=== PATIENT | female | born 1935 | race Caucasian/White ===

== ENCOUNTER 2016-12-26 06:37 | Inpatient (IN) | payer MEDICARE, BC ==
[~2016-12-26] VITALS: Ht 172.7 cm; Wt 84.0 kg
--- NOTE | ~2016-12-26 | ER ---
PATIENT'S NAME: [facility] AGE: 80 Y [address] ROOM: [place] [address] LOCATION: GPCU ADMIT DATE: 12/26/2016 ER/Outpatient Report DISCHARGE DATE: FAMILY PHYSICIAN: PHYSICIAN, NO ATTENDING PHYSICIAN: EFREN SKAGGS V TIME OF ARRIVAL: 0637 hours. TIME SEEN: 0637 hours. IDENTIFICATION: A 80-year-old female. CHIEF COMPLAINT: Difficulty breathing. HISTORY OF PRESENT ILLNESS: The patient is a 80-year-old female, who is visiting family in [place]. She is from [place]. She has been short of breath and a cough productive of yellow sputum that is increasing in severity over the last couple of days. She had a temp at home this morning of 101.9 and short of breath. She was seen in the clinic yesterday by Dr. Valadez and prescribed a Z-Cornell, which she has taken 2 tablets. She does have a history of COPD, but not O2 or steroid- dependent. ALLERGIES: ALBUTEROL THAT CAUSES HER HEART TO RACE. MEDICATIONS: She takes: 1. Calcium plus vitamin D. 2. Eliquis 2.5 mg b.i.d. 3. Montelukast 10 mg at bedtime. 4. Multivitamin. 5. Incruse prescribed yesterday. 6. Z-Cornell prescribed yesterday. 7. Hydrochlorothiazide 25 mg daily. 8. Docusate. 9. Senna. 10. RezVera. MEDICAL PROBLEMS: 1. History of atrial fibrillation, on chronic anticoagulation. PATIENT'S NAME: [facility]AL [facility] AGE: 80 Y [address] ROOM: [address] [address] LOCATION: GPCU ADMIT DATE: 12/26/2016 ER/Outpatient Report DISCHARGE DATE: FAMILY PHYSICIAN: PHYSICIAN, NO ATTENDING PHYSICIAN: EFREN SKAGGS V 2. Congestive heart failure. 3. COPD. PRIOR SURGERIES: Pacemaker, cardiac ablation. SOCIAL HISTORY: The patient is . She is a retired nurse. She lives in [place]. She has family in [place]. Tobacco use, denies. Alcohol use, denies. Drug use, denies. REVIEW OF SYSTEMS: All systems reviewed and negative other than what is noted in the HPI. The only exception that she has chest pain with cough. She denies any other pain. PHYSICAL EXAMINATION: VITAL SIGNS: Height 5 feet 8 inches, weight 84 kg, blood pressure 141/92, pulse 88, respirations 18, temperature 101.2 tympanic, sats 84% on room air. GENERAL: This is a 80-year-old female who does appear short of breath. Could not answer in full sentences. HEENT: Head: Normocephalic, atraumatic. Ears: TMs translucent both ears. Eyes: Pupils equal and reactive to light and accommodation. Extraocular movements intact. Nose: Mucosa pink. No lesions or drainage. Mouth: No lesions. Pharynx benign. NECK: Supple. No lymphadenopathy. LUNGS: Crackles in the left lower lobe. HEART: Regular rate and rhythm. No murmur, rub, or gallop. ABDOMEN: Bowel sounds present. Soft and nondistended. No hepatosplenomegaly. No palpable masses. Nontender. SKIN: [place], warm, and dry. No lesions or rashes noted. NEURO: No focal deficit. She is alert and oriented x4. Cranial nerves 2 through 12 grossly intact. Motor strength 5/5 throughout. Sensation is intact to light touch. Trace of bilateral lower extremity edema. No calf tenderness. EMERGENCY DEPARTMENT COURSE: The patient was placed on O2 at 2 L per nasal cannula. Her sats improved to 90% to 92% on the 2 L. She was given Xopenex with her permission. Sputum culture was obtained. Blood cultures x2 were obtained. D-dimer 0.50. Influenza A is positive. Influenza B is negative. Hemoglobin 13.6, hematocrit 40.5, platelets 185, white count 7.1 with a normal differential. INR 1.2. Sodium 136, potassium 3.4, chloride 101, CO2 of 25, BUN 15, creatinine 0.8, blood sugar 145. Liver enzymes normal. Magnesium 1.4. CPK 169, CK-MB 0.9. Troponin I less than 0.040. ProBNP elevated at 2012, no previous pro-BNP for comparison. Lactate 2.1. UA: Specific gravity 1.015, PATIENT'S NAME: ORTEGA ROJAS [facility] AGE: 80 Y [address] ROOM: [place] [id number] [facility] ADMIT DATE: 12/26/2016 ER/Outpatient Report DISCHARGE DATE: FAMILY PHYSICIAN: PHYSICIAN, NO ATTENDING PHYSICIAN: EFREN SKAGGS V pH 6.0, 0 to 2 white cells, 2 to 5 red cells, 2 to 5 epithelial cells. Urine culture pending. Blood culture x2 pending. EKG, ventricular paced rhythm at 71 beats per minute. No acute ST elevation or depression. Procalcitonin pending at the time of this dictation. Chest x-rays shows a left lower lobe infiltrate and a left-sided cardiac pacemaker. Pending Radiology over-read. IMPRESSION AND PLAN: 1. Acute hypoxic respiratory failure, improved with O2 per nasal cannula. 2. Influenza A positive. 3. Left lower lobe pneumonia. 4. History of atrial fibrillation, on chronic anticoagulation. 5. Congestive heart failure. PLAN: For admission per Dr. Castro/Toby to U telemetry. The patient was given in the emergency room, pneumonia pathway was initiated and she was given Tamiflu 75 mg p.o. x1, Zithromax and Rocephin IV, Solu-Medrol 125 mg IV, Xopenex and Atrovent q.6 hours while awake was ordered per Dr. Castro. Atrovent q.2 hours p.r.n. wheezing, Mucinex 600 mg ER b.i.d. Continue her current home medications. Sputum culture was obtained and urine for Legionella and pneumococcal PCR was ordered per Dr. Castro that was changed per Dr. Castro in the lab to the kit that they have here in the hospital that will not be send out. A 35 minutes of critical care was provided with this patient secondary to her hypoxia. DANITZA NAVARRETE MD CAR/modl /[id number] d: 12/26/16 1023 t: 12/27/16 1542, OUTPATIENT REPORT
--- NOTE | ~2016-12-26 | DS ---
PATIENT'S NAME: ORTEGA ROJAS [facility] AGE: 81 Y [address] ROOM: [address] [place], [place] [address] LOCATION: GPCU ADMIT DATE: 12/26/2016 Discharge Summary DISCHARGE DATE: 12/31/2016 FAMILY PHYSICIAN: PHYSICIAN, NO ATTENDING PHYSICIAN: Sha Luis V FINAL DIAGNOSES: 1. Acute hypoxic respiratory failure. 2. Streptococcus pneumoniae pneumonia. 3. Influenza A. 4. Status post pacer, status post AV ablation for atrial fibrillation. 5. Hypokalemia. 6. Long-term anticoagulation. Please see the history and physical dictated by Dr. Luis for details of admission. LABORATORY DATA: On admit, white blood cell count 7.1, hemoglobin 13.6, hematocrit 40.5, and platelet count 185. Most prior to discharge, white blood cell count 8.8, hemoglobin 11.1. Pro-time on admission was 12.3, INR of 1.2. Urinalysis on admission did not show any evidence of infection. D-dimer was normal. Lactate on admission was 2.1. Sodium on admission was 136, potassium 3.4, chloride 101, CO2 25, BUN 15, and creatinine 0.8. At discharge, sodium 140, BUN 16, and creatinine 0.8. She was influenza A positive. Blood cultures were negative. Procalcitonin was 0.08. Respiratory culture grew Staphylococcus pneumoniae. RADIOLOGY STUDIES: On admission, she had extensive patchy infiltrate in the left lung. HOSPITAL COURSE: The patient was admitted after presenting through the emergency room with a diagnosis of influenza A. She was started on Tamiflu. She was also given Rocephin and azithromycin as well as prednisone for left- sided pneumonia. She was placed on PCU. She was given aggressive pulmonary toilet. She was kept in isolation due to the influenza. She did receive IV fluids and her potassium was replaced. She was able to have her oxygen requirements diminished. She did have significant coughing which responded to Phenergan with codeine. Her sputum culture did come back positive for Strep pneumoniae. She had an echocardiogram done because of some concern about her aortic root size. In comparison to her previous dimension, showed there had not been any change. She was able to be weaned off her oxygen. It was felt that she was stable for discharge to home on 31 of December. DISCHARGE INSTRUCTIONS: She is to follow up with her primary care provider in a week. PATIENT'S NAME: ORTEGA ROJAS [facility] AGE: 81 Y [address] ROOM: [id number] [place], [place] [address] LOCATION: GPCU ADMIT DATE: 12/26/2016 Discharge Summary DISCHARGE DATE: 12/31/2016 FAMILY PHYSICIAN: PHYSICIAN, NO ATTENDING PHYSICIAN: Sha Luis V MEDICATIONS: 1. Hydrochlorothiazide 25 mg daily. 2. Singulair 10 mg daily. 3. Xalatan drops 1 drop at night, both eyes. 4. Apixaban 2.5 mg twice daily. 5. Calcium carbonate with vitamin D3 600/400 one tab daily. 6. RezVera supplement 1 caplet twice daily. 7. Multivitamin daily. 8. Benadryl 25 mg at bedtime as needed. 9. Senna tab 1 daily. 10. Incruse Ellipta 1 inhalation daily. 11. Prednisone 20 mg daily for 5 days, then 10 mg daily for 8 days, then stop. 12. Xopenex inhaler 2 puffs 4 times daily. 13. Tessalon Perles 100 mg every 8 hours as needed for cough. 14. Phenergan with codeine 10 mL every 4 hours as needed. 15. Tylenol 650 mg every 4 hours as needed. 16. Amoxicillin 2000 mg twice daily for 5 days. OVERALL PROGNOSIS: At discharge was good. VEENA VALDIVIA MD LAW/modl /[id number] d: 01/07/172230 t: 01/09/17 1613, DISCHARGE SUMMARY
--- NOTE | ~2016-12-26 | HP ---
PATIENT'S NAME: [facility]AL [facility] AGE: 80 Y [address] ROOM: [place] [address] LOCATION: GPCU ADMIT DATE: 12/26/2016 History & Physical DISCHARGE DATE: FAMILY PHYSICIAN: PHYSICIAN, NO ATTENDING PHYSICIAN: EFREN SKAGGS V DATE OF SERVICE: CHIEF COMPLAINT: Shortness of breath and cough. HISTORY OF PRESENT ILLNESS: The patient is a 80-year-old female with past medical history most significant for nontobacco associated COPD (diagnosed via PFTs, but not on any treatment) who is visiting her family from [place]. The patient has developed progressive shortness of breath and a productive cough. This was also associated with a gastrointestinal upset. The symptoms have progressed in the course of last 3 days until yesterday the patient went to see a primary care provider. She was given a Z-Cornell, but her symptoms did not improve. Today, she returned to the ER and was found to have a saturation of 84%. She also had a temperature of 101.2. Further workup in the ER revealed influenza A positive and a pneumonia on the chest x-ray. The patient denies any chest pain, palpitations, diaphoresis, near syncope, but does admit to some anorexia and generalized malaise. REVIEW OF SYSTEMS: All systems have been reviewed and are negative aside from pertinent positives as mentioned above. PAST MEDICAL HISTORY: 1. Atrial fibrillation, on long-term anticoagulation. 2. Permanent pacemaker. 3. COPD. 4. Essential hypertension. CURRENT MEDICATIONS: 1. Calcium and vitamin D. 2. Eliquis. 3. Montelukast. 4. Multivitamins. 5. Ellipta, which the patient does not use. 6. Hydrochlorothiazide. 7. Z-Cornell. 8. RezVera. PATIENT'S NAME: [facility] AGE: 80 Y [address] ROOM: [place] [address] LOCATION: GPCU ADMIT DATE: 12/26/2016 History & Physical DISCHARGE DATE: FAMILY PHYSICIAN: PHYSICIAN, NO ATTENDING PHYSICIAN: EFREN SKAGGS V SOCIAL HISTORY: The patient denies ever having smoked or having exposure to secondhand smoke. She is a retired nurse. FAMILY HISTORY: Family history was reviewed and is noncontributory due to her advanced age and known underlying etiology for her presentation. PHYSICAL EXAMINATION: VITAL SIGNS: In the ER, she was satting 84% on room air, which now improved to mid 90s on 2 L nasal cannula. Blood pressure was 141/92, pulse 88, respirations 18, and temperature 101.2. GENERAL: Appears well-developed, well-nourished elderly female, in no acute distress. HEENT: Reveals no stridor. NEUROLOGIC: Exam is nonfocal. EYES: Exam shows pupils are equal and reactive to light. LYMPHATIC: Exam shows no cervical lymphadenopathy. ENDOCRINE: Exam shows no thyromegaly. LUNGS: Exam reveals considerable crackles and some very mild wheezing in the left base approximately [address] lung. Some trace crackles at bases in the right lung. HEART: Rate is irregularly irregular with no appreciable murmurs, gallops, or rubs. GI: Abdomen is soft, nontender, nondistended. : Exam shows no costovertebral angle tenderness. VASCULAR: Reveals 2+ pedal pulses. MUSCULOSKELETAL: Exam reveals no muscle or joint abnormalities. PSYCHIATRIC: Reveals appropriate mood, cognition, and affect. SKIN: Warm and dry. LABORATORY DATA: Studies performed in the ER significant for a chest x-ray, which demonstrates a left lower lobe infiltrate with some mild hyperinflation. Lab results are significant for a lactate 2.1, pro-BNP of 2000. Negative cardiac enzymes x2. White count is 7.1, no bands. Influenza A positive. Urinalysis is unremarkable. ASSESSMENT AND PLAN: This is a 80-year-old female who will be admitted with: 1. Acute hypoxic respiratory failure due to a pneumonia/influenza A. We will support the patient with O2 supplementation and nebulizers. 2. Pneumonia. The patient was started on Rocephin and Zithromax. We will continue these 2 agents. We will check her urine for pneumococcal and PATIENT'S NAME: ORTEGA ROJAS [facility] AGE: 80 Y [address] ROOM: [id number] [place], [place] [address] LOCATION: GPCU ADMIT DATE: 12/26/2016 History & Physical DISCHARGE DATE: FAMILY PHYSICIAN: PHYSICIAN, NO ATTENDING PHYSICIAN: EFREN SKAGGS V Legionella antigen. 3. Chronic obstructive pulmonary disease exacerbation. This appears to be mild and we will put the patient on oral steroids for the time being. We will also put on nebulizers. We may have to upgrade her therapy if her respiratory status does not get better. 4. Paroxysmal atrial fibrillation/on long-term anticoagulation. We will continue the patient's current medications and her anticoagulation. 5. Gastrointestinal prophylaxis. The patient will be placed on Florastor she will be receiving antibiotics. 6. Deep venous thrombosis prophylaxis will not be necessary as she is fully anticoagulated. 7. Additional management will depend on clinical course. Time dedicated to this patient encounter is 35 minutes. MD JODI MASSEY/marco /[id number] D: 020 T: 542 HISTORY & PHYSICAL
--- NOTE | ~2016-12-26 | PUL ---
PATIENT'S NAME: ORTEGA ROJAS [facility] AGE: 81 Y [address] ROOM: [address] [address] LOCATION: GPCU ADMIT DATE: 12/26/2016 Pulmonary DISCHARGE DATE: 12/31/2016 FAMILY PHYSICIAN: PHYSICIAN, NO ATTENDING PHYSICIAN: Sha Luis V NAME OF PROCEDURE: Overnight Pulse Oximetry DATE OF PROCEDURE: December 30 to December 31, 2016 REASON FOR EXAM: Nocturnal hypoxemia RESULTS: The test was performed on room air. The recording time was 10 hours, 49 minutes, and 32 with a total sampling time of 10 hours, 39 minutes, and 12. The highest pulse 137, lowest pulse of 61, with a mean pulse of 70. The highest SpO2 was 100%, lowest SpO2 of 76%, with a mean SpO2 of 92.1%. The patient spent 6 minutes and 16 seconds with SpO2 less than 89%, representing less than 1% of the total sleep time. The desaturation event index was normal at 3.9. PHYSICIAN INTERPRETATION: The patient has mild, but significant nocturnal hypoxia and would qualify for supplemental oxygen as per Medicare criteria. MD FREDRICK VICKERS/nichole /[id number] dtt: 01/03/17 1204 , MARSHALL DELA CRUZ dtd: 01/03/17 1121
--- NOTE | ~2016-12-26 | ECHO ---
Transthoracic Echocardiography Report (TTE) Demographics Patient Name ORTEGA ROJAS Date of Study 12/30/2016 Patient Number [id number] Visit Number [id number] Date of 1935 Room Number [address] Gender Female Number Age 81 year(s) Referring Alberto Silva MD Stitch Welder Renato Gray Physician Toby Ocampo RDCS, MD RVT Physician Interpreting Harika Tirado Zigzag Machine Operator Physician Supervising Ordering Alberto Silva MD, MD/MLP Physician Nurse Stress Collision Repairer Conclusions Contractility Score Summary Normal Left Ventricular contractility was noted. Summary The estimated left ventricular ejection fraction is 55-60%. Mild concentric left ventricular hypertrophy. There is trivial aortic regurgitation by color Doppler. Moderate tricuspid regurgitation by color Doppler. There is mild to moderate pulmonary hypertension. The pulmonary pressure (RVSP) is 47 mmHg. Small global pericardial effusion. The ascending aorta appears moderately dilated. The maximum diameter measures 4.1 cm. Procedure Type of Study TTE procedure:2D Echocardiogram, M-Mode, Doppler , Color Doppler. Procedure Date Date: 12/30/2016 Start: 11:09 AM Study Location: Inpatient Portable Technical Quality: Adequate visualization Indications:CHF. Additional Indications:Hypoxia Fluid retention Appropriate Use Criteria: 9 Patient Status: Routine HR: 94 bpm BP: 143/91 mmHg M-Mode/2D Measurements LV Diastolic Dimension: 5.05 cm LV Systolic Dimension: 2.74 cm LV Septum Diastolic: 0.94 cm LV PW Diastolic: 0.98 cm AO Root Dimension: 2.8 cm Cardiac Output: 4.56 l/min LA Dimension: 3.8 cm EF Estimated: 50 % LVOT: 2.1 cm LVOT VTI: 14 cm RV Base: 2.56 cm LV Stroke volume: 48.47 ml RV Length: 5.6 cm TAPSE: 1.25 cm TDI-S': 10.6 cm/s Doppler Measurements AV Peak Velocity: 1.06 m/s MV Peak E-Wave: 0.68 m/s AV Peak Gradient: 4.49 mmHg AV Mean Gradient: 4 mmHg MV P1/2t: 50 msec LVOT Peak Velocity: 0.79 m/s TR Velocity:3.12 m/s PV Peak Velocity: 0.55 m/s TR Gradient:38.94 mmHg PV Peak Gradient: 1.19 mmHg Estimated RAP:12 mmHg Estimated PASP: 50.94 mmHg Estimated RVSP: 51 mmHg E' Septal Velocity: 0.07 m/s E' Lateral Velocity: 0.13 m/s Findings Left Ventricle The left ventricle is normal in size . Mild concentric left ventricular hypertrophy. Diastolic function indeterminate due to patient's arrhythmia. Right Ventricle Mildly dilated right ventricle. Left Atrium The left atrium is moderately dilated by LA volume index measurement. Right Atrium The right atrium is moderately dilated. Dilated IVC with poor inspiratory collapse consistent with elevated RA pressure. Device lead seen in the right atrium. Mitral Valve Trivial mitral regurgitation by color Doppler. Aortic Valve The aortic valve is mildly sclerotic. There is trivial aortic regurgitation by color Doppler. Tricuspid Valve Moderate tricuspid regurgitation by color Doppler. There is mild to moderate pulmonary hypertension. The pulmonary pressure (RVSP) is 47 mmHg. Pulmonic Valve Trivial pulmonic valve regurgitation by color Doppler. Pericardial Effusion Small global pericardial effusion. Miscellaneous The ascending aorta appears moderately dilated. The maximum diameter measures 4.1 cm. Pleural Effusion No evidence of pleural effusion. Contractility Score LV regional wall motion:(0-Non visualized 1-Normal 2-Hypokinesis 3-Akinesis 4-Dyskinesis 5-Aneurysm) Signature dtt: SHARAD WRIGHT dtd: 12/30/16 1109 Physician Self Edit
[2016-12-26 07:15] LABS: BASOPHIL % 0.3 %; HEMATOCRIT 40.5 % (33.0-46.0); HEMOGLOBIN 13.6 g/dL (10.0-15.0); IMMATURE GRANULOCYTE % 0.3 %; LYMPHOCYTE # 0.7 K/uL (0.8-4.0); LYMPHOCYTE % 10.2 %; MCH 30.2 pg (27.0-34.0); MCHC 33.6 gm/dL (32.0-36.5); MONOCYTE # 0.3 K/uL (0.0-1.0); MONOCYTE % 3.7 %; MPV 9.9 fl (9.4-12.4); NEUTROPHIL % 85.5 %; NRBC % 0 /100WBC (0-0.00); PLATELET COUNT 185 K/uL (150-450); RDW-CV 14.3 % (11.9-14.6); WBC 7.1 K/uL (4.0-11.0)
[2016-12-26 07:17] LABS: ALBUMIN 3.5 gm/dL (3.5-5.0); ALK PHOS 67 IU/L (33-138); ALT 20 IU/L (12-78); ANION GAP 13.4 (10.0-19.0); AST 26 IU/L (10-40); BLOOD UREA NITROGEN 15 mg/dL (6-24); CALCIUM 8.5 mg/dL (8.5-10.5); CHLORIDE 101 mMol/L (96-110); CO2 25 mMol/L (22-32); CPK 169 IU/L (21-215); CREATININE 0.8 mg/dL (0.5-1.1); ESTIMATED GFR (MDRD EQUATION) > 60; MAGNESIUM 1.4 mg/dL (1.3-2.6); POTASSIUM 3.4 mMol/L (3.7-5.1); SODIUM 136 mMol/L (135-145); TOTAL BILIRUBIN 0.4 mg/dL (0.0-1.5); TOTAL PROTEIN 6.9 g/dL (6.0-8.4)
[2016-12-26 07:18] LABS: BILIRUBIN URINE NEGATIVE (NEGATIVE); BLOOD URINE 25 /UL (NEGATIVE); GLUCOSE URINE NEGATIVE (NEGATIVE); KETONE URINE 15 mg/dL (NEGATIVE); LEUKOCYTES URINE NEGATIVE /UL (NEGATIVE); NITRITE URINE NEGATIVE (NEGATIVE); PROTEIN URINE 30 mg/dL (NEGATIVE); SPEC GRAVITY URINE 1.015 (1.003-1.035); UROBILINOGEN URINE NORMAL (NORMAL)
[2016-12-26 07:19] LABS: COLOR URINE YELLOW (YELLOW); TURBIDITY URINE CLEAR (CLEAR)
[2016-12-26 07:25] LABS: INR - (THERAPEUTIC) 1.2 (0.9-1.1); PROTIME 12.3 SECONDS (9.6-11.1); PTT 23 SECONDS (25-32)
[2016-12-26 07:32] LABS: WBC URINE 0-2 #/HPF (NEGATIVE)
[2016-12-26 07:33] LABS: BACTERIA URINE RARE (NEGATIVE); MUCUS URINE 1+ (NEGATIVE)
[2016-12-26] MEDS ORDERED: HYDRODIURIL25 MG PO (09:54)
[2016-12-26] MEDS ORDERED: ZITHROMAX250 MG PO (09:54)
[2016-12-26] MEDS ORDERED: SINGULAIR10 MG PO (09:54)
[2016-12-26] MEDS ORDERED: ELIQUIS2.5 MG PO (09:55)
[2016-12-26] MEDS ORDERED: CALCIUM 600 +1 EAC3 PO (09:55)
[2016-12-26] MEDS ORDERED: XALATAN2.5 ML OPHTH (09:55)
[2016-12-26] MEDS ORDERED: ADVIL200 MG PO (09:56)
[2016-12-26] MEDS ORDERED: TYLENOL EXTRA500 MG PO (09:56)
[2016-12-26] MEDS ORDERED: BENADRYL25 MG PO (09:58)
[2016-12-26] MEDS ORDERED: [UNRECOGNIZED DRUG - OTHER] PO (09:58)
[2016-12-26] MEDS ORDERED: THERA-VITE W/ B1 TAB PO (09:58)
[2016-12-26] MEDS ORDERED: ALLEGRA180 MG PO (09:58)
[2016-12-26] MEDS ORDERED: AIRBORNE EFFER1 EACH PO (09:59)
[2016-12-26] MEDS ORDERED: SENNA S TABLET1 EACH PO (09:59)
[2016-12-26] MEDS ORDERED: INCRUSE ELLI62.5 MCG INH (10:00)
--- NOTE | 2016-12-26 11:57 | NUR ---
PT is 80 y/o female admit for pneumonia and influenza A for hospitalist. Pt is allergic to albuterol and demerol. REd and yellow bracelets on. Hx pacemaker, afib,AV node ablation,cardioversion x2,DVT,htn,SOB,COPD,chronic sinus problems. Pt alert and oriented x3. Pt and her are in this area visiting their daughter who lives in [place]. States she hasn't felt well since and has had a fever 102,productive cough of thick yellow brown phlegm and a congested chest.
--- NOTE | 2016-12-26 16:39 | NUR ---
Significant event: A&Ox3. HR 70's, paced. Had temp of 102.3 in ER, max temp since on PCU was 99.9. On 1L of oxygen, does not wear O2 at home. Lung sounds slightly coarse throughout, has productive cough, nava sputum. Sputum culture obtained in ER. Tessalon perles given at 1013. Patient is [place], wears L) hearing aid. NS at 75ml/hr. Zithromax and Rocephin given in ER, as well as tamiflu. Tylenol given for headache at 1440. Daughter at bedside. Follow Up: Continue current POC.
--- NOTE | 2016-12-27 04:23 | NUR ---
Significant Event: PATIENT IS A/O X3. VSS. HR 70'S IN PACED RHYTHM. SBP 110-120'S. AFEBRILE. 02 SATS IN MID 90'S ON 1L 02 BUT RA WHEN AWAKE. C/O HEADACHE. EXTRA STRENGTH TYLENOL GIVEN X1 WITH RELIEF. LUNGS SLIGHTLY COARSE THROUGHOUT. UP WITH 1 ASSIST.. BOWELS ACTIVE. BM X1. VOIDS PER RESTROOM. NO MAJOR SKIN ISSUES. IV TO LEFT FOREARM WITH NS AT 75ML/HR. Follow up: CONTINUE TO MONITOR PER PLAN OF CARE.
--- NOTE | 2016-12-27 16:27 | NUR ---
Significant event: A&Ox3. Lung sounds wheezy throughout this AM and slightly coarse,notified , IV fluids decreased, then later were discontinued. HR 70's. Max temp of 99.1. Tylenol given once early afternoon for GUERRERO, with relief. On 2L NC, sats lower 90's. Productive cough with nava sputum. Bowel sounds hyperactive. 1+ tibial edema. Paced.
--- NOTE | 2016-12-27 16:40 | NUR ---
I did touch base with nursing due to pt sleeping. She states pt is independent with cares and does not anticipate any dc needs. She states she is from [place] and her and her are down visiting daughter and moving on to see other family. WIll continue to follow.
[2016-12-28 04:30] LABS: BASOPHIL % 0.1 %; HEMATOCRIT 36.4 % (33.0-46.0); HEMOGLOBIN 11.5 g/dL (10.0-15.0); IMMATURE GRANULOCYTE # 0.1 K/uL (0.0-0.3); IMMATURE GRANULOCYTE % 0.6 %; LYMPHOCYTE # 1.3 K/uL (0.8-4.0); LYMPHOCYTE % 11.2 %; MCH 29.3 pg (27.0-34.0); MCHC 31.6 gm/dL (32.0-36.5); MCV 92.6 fl (83.0-98.0); MONOCYTE # 0.6 K/uL (0.0-1.0); MONOCYTE % 5.5 %; MPV 10.2 fl (9.4-12.4); NEUTROPHIL # (ANC) 9.6 K/uL (1.8-7.8); NEUTROPHIL % 82.6 %; NRBC % 0 /100WBC (0-0.00); PLATELET COUNT 172 K/uL (150-450); RBC 3.93 M/uL (3.50-5.50); RDW-CV 14.6 % (11.9-14.6); WBC 11.7 K/uL (4.0-11.0)
[2016-12-28 04:53] LABS: ALBUMIN 2.8 gm/dL (3.5-5.0); ALK PHOS 64 IU/L (33-138); ALT 23 IU/L (12-78); ANION GAP 10.8 (10.0-19.0); AST 25 IU/L (10-40); BLOOD UREA NITROGEN 13 mg/dL (6-24); CALCIUM 8.8 mg/dL (8.5-10.5); CHLORIDE 103 mMol/L (96-110); CO2 30 mMol/L (22-32); CREATININE 0.7 mg/dL (0.5-1.1); ESTIMATED GFR (MDRD EQUATION) > 60; POTASSIUM 3.8 mMol/L (3.7-5.1); SODIUM 140 mMol/L (135-145); TOTAL BILIRUBIN 0.4 mg/dL (0.0-1.5); TOTAL PROTEIN 6.3 g/dL (6.0-8.4)
--- NOTE | 2016-12-28 06:58 | NUR ---
Significant Event: A/0X3. [place]. RESTED IN BED ALL OF SHIFT. TURNS SELF. AFEBRILE. VSS ON 2L. TYLENOL GIVEN X1 FOR A HEADACHE. LAST DOSE WAS AT 2119. PATIENT WAS ABLE TO FIND RELIEF AND NO C/O OF PAIN THE REST OF THE SHIFT. IV TO L) FA SL. VOIDED 300+. NO BM THIS SHIFT. STILL IN DROPLET ISOLATION. CONTINUE WITH TAMIFLU AND IV ANTIBIOTICS. Follow up: CONTINUE WITH PLAN OF CARE.
--- NOTE | 2016-12-28 16:38 | NUR ---
Significant Event: A/OX3, VSS ON ROOM AIR, HR'S 60-70'S, SBP 120-140'S. TESSALON PERLES GIVEN AT 1541 FOR COUGH. SLIV TO L)FA. PT. GETS UP SBA TO BATHROOM. PT. REMAINS IN DROPLET ISOLATION D/T INFLUENZA A. ENCOURAGE PATIENTS FAMILY TO WEAR A MASK WHEN IN ROOM. PT. COUGHING UP MORE SPUTUM TODAY. 1900mL UOP TODAY, MODERATE BM X1. Follow up: CONTINUE WITH POC.
--- NOTE | 2016-12-29 05:01 | NUR ---
Significant Event: Patient alert and oriented. Up with minimal assist. VSS. 2L oxygen for sats 88% on room air when asleep. Tylenol given x2 with relief noted and tessalon pearls given x1 for cough. Rested throughout shift. Cooperative with cares. Follow up: continue plan of care
--- NOTE | 2016-12-29 16:20 | NUR ---
Significant Event: PT. A/XO3, VSS ON ROOM AIR. PT. GETS UP SELF IN ROOM. SHOWERED TODAY. VOIDS FINE, LARGE BMX1. SLIV TO L)FA. NO COMPLAINTS OF PAIN. PT. STILL HOLDS RLQ WHEN COUGHING. LUNG SOUNDS ARE CLEAR/DIMINISHED TO EXP. WHEEZING AT TIMES. TESSALON PERLES GIVEN AT 1215. FAMILY IN ROOM. REMAINS IN ISOLATION FOR INFLUENZA A. LABS IN AM, POSSIBLE D/C TO HOME IN THE NEXT COUPLE OF DAYS. Follow up: CONTINUE WITH POC.
--- NOTE | 2016-12-30 04:25 | NUR ---
Significant Event: A/0 X 3, STAND BY ASSIST. BP'S HAVE BEEN HIGH COMPARED TO HER NORM, TONIGHT 150'S TO 170'S. UNABLE TO WEEN TO ROOM AIR, REMAINS ON 1L 02. LUNGS REMAIN WHEEZY. TESSALSON MONICA GIVEN AT 2300, OTHER THAN THAT THERE HAVE BEEN NO COMPLICATIONS THIS EVENING. PLANNED TO BE DISCHARGED BY FRIDAY. Follow up:
[2016-12-30 06:04] LABS: BASOPHIL % 0.5 %; EOSINOPHIL % 0.1 %; HEMATOCRIT 36.3 % (30.0-46.0); HEMOGLOBIN 11.9 g/dL (10.0-15.0); IMMATURE GRANULOCYTE # 0.5 K/uL (0.0-0.3); IMMATURE GRANULOCYTE % 5.5 %; LYMPHOCYTE # 2.3 K/uL (0.8-4.0); LYMPHOCYTE % 26.4 %; MCH 29.5 pg (27.0-34.0); MCHC 32.8 gm/dL (32.0-36.5); MCV 89.9 fl (83.0-98.0); MONOCYTE # 0.7 K/uL (0.0-1.0); MONOCYTE % 7.6 %; MPV 9.1 fl (9.4-12.4); NEUTROPHIL # (ANC) 5.3 K/uL (1.8-7.8); NEUTROPHIL % 59.9 %; NRBC % 0 /100WBC (0-0.00); RBC 4.04 M/uL (3.00-5.00); RDW-CV 14.1 % (11.9-14.6); WBC 8.8 K/uL (4.0-11.0)
[2016-12-30 06:07] LABS: PLATELET COUNT 217 K/uL (150-450)
[2016-12-30 06:11] LABS: ALBUMIN 2.5 gm/dL (3.5-5.0); ANION GAP 12.4 (10.0-19.0); BLOOD UREA NITROGEN 16 mg/dL (6-24); CALCIUM 9.3 mg/dL (8.5-10.5); CHLORIDE 100 mMol/L (96-110); CO2 31 mMol/L (22-32); CREATININE 0.8 mg/dL (0.5-1.1); ESTIMATED GFR (MDRD EQUATION) > 60; POTASSIUM 3.4 mMol/L (3.7-5.1); SODIUM 140 mMol/L (135-145)
--- NOTE | 2016-12-30 16:15 | NUR ---
Introduced self and role of care management to pt and . They are from [place] but visiting daughter in [place] and another in [place]. She states the plan is home tomorrow but will stay with daughter for a few days until he is allowed to travel. She is worried about needing oxygen and I explained RT will work with you on setting it up. I discussed dme's or hhc and denies at this time. Will assist as needed.
--- NOTE | 2016-12-30 16:16 | NUR ---
Significant event: A&Ox3. VSS. RA. Occasional expiratory wheezes.Occasional productive cough, did not want any medication for cough today. 1+ edema to feet. Denies pain. PRN senna-s given, patient had BM. Echo done today, to read. Trend-ox ordered for tonight. Follow Up: Discharge tomorrow?
--- NOTE | 2016-12-31 00:27 | NUR ---
Significant Event: PT UP INDEPENDENTLY IN ROOM. HAS REMAINED ON ROOM AIR ALL SHIFT. GIVEN 1000 MG TYLENOL AND 25 MG BENADRYL FOR C/O HEADACHE AT BEDTIME. APPEARS TO REST WELL. STARTED ON OVER NIGHT TREND OX. Follow up: TREND OX. D/C TO HOME WITH DAUGHTER IN AM. PT HAS QUESTION RE: WHEN ABLE TO TRAVEL BACK TO [place]?
--- NOTE | 2016-12-31 03:10 | NUR ---
Significant Event: A&OX3. VSS. On tele Paced Rythm. RA trendox done over night. Expiratory wheeze at times. Productive cough. Up independent in room. Last BM 12/30/16. IV to L) forearm SL. No complaints of pain. Follow up: Possible discharge today. Meds filled out and on the chart just need signed.
--- NOTE | 2016-12-31 09:00 | NUR ---
PT SCREENED D/T LOS. EST NEEDS: 8075-0952 KCALS, 84-100 GM PROTEIN, 1 ML/KCAL FLUIDS. INTAKE 75-100%. POSSIBLY DISCHARGE TODAY. NO NUTRITION-RELATED DIAGNOSIS IDENTIFIED.
[2016-12-31] MEDS ORDERED: DELTASONE10 MG PO ×2 (15:16→15:17)
[2016-12-31] MEDS ORDERED: XOPENEX HF45 MCG/INH INH (15:18)
[2016-12-31] MEDS ORDERED: TESSALON PERLE100 MG PO (15:19)
[2016-12-31] MEDS ORDERED: PHENERGAN WITH480 ML PO (15:21)
[2016-12-31] MEDS ORDERED: TYLENOL325 MG PO (15:22)
[2016-12-31] MEDS ORDERED: AMOXICILLIN500 M1 PO (15:25)
== END 2016-12-31 13:50 | disposition disaster alternative care site (69) | DRG 190 ==
LOC: GMED 06:37 → GPCU 08:20
PROVIDERS: Family Medicine; ADMIT Internal Medicine
DX: J44.0 Chronic obstructive pulmonary disease with (acute) lower respiratory infection (principal); J11.08 Influenza due to unidentified influenza virus with specified pneumonia; J44.1 Chronic obstructive pulmonary disease with (acute) exacerbation; J96.01 Acute respiratory failure with hypoxia; J13 Pneumonia due to Streptococcus pneumoniae; E87.6 Hypokalemia; I48.0 Paroxysmal atrial fibrillation; Z79.01 Long term (current) use of anticoagulants
CPT/HCPCS: J0456; J0696; J2930; J7030; J7040; J7050; J7512; J7612